=== PATIENT | male | born 1955 | race Caucasian/White ===

== ENCOUNTER 2016-07-07 09:23 | Inpatient (IN) | payer BC ==
[2016-07-02 20:26] LABS: HEMATOCRIT 41.1 % (40.0-51.0); HEMOGLOBIN 14.5 g/dL (13.6-17.8)
[2016-07-02 20:35] LABS: BUN (BLOOD UREA NITROGEN) 25 MG/DL (6-23); CALCIUM, SERUM 8.9 MG/DL (8.5-10.4); CHLORIDE, SERUM 106 MMOL/L (96-112); CO2 (CARBON DIOXIDE) 31 MMOL/L (24-34); CREATININE 1.16 MG/DL (0.70-1.30); GFR AFRICAN AMERICAN 78 ML/MIN (>=60); GFR NON AFRICAN AMERICAN 67 ML/MIN (>=60); GLUCOSE, SERUM 84 MG/DL (60-99); POTASSIUM, SERUM 4.2 MMOL/L (3.5-5.3); SODIUM, SERUM 143 MMOL/L (135-148)
--- NOTE | ~2016-07-07 | OP ---
Record Of Operation [facility] [address] [place] [address] NAME: FROYLAN GREEN : 51 STATUS : DIS IN PAT#: [id number] AGE: 61 ADM/REG DATE : 07/07/16 MR#: [id number] REPORT SERV DATE: 07/12/16 DICTATED BY: ALBANIA STANLEY II DATE: 07/12/16 REPORT STATUS : Draft TRANSCRIBED BY: MODL DATE: 07/12/16 DATE OF PROCEDURE: 07/07/2016 PREOPERATIVE DIAGNOSES: 1. Right lower extremity severe radiculopathy. 2. Degenerative scoliosis. 3. History of L4-5 and L5-S1 laminectomy. 4. L4-5 and L5-S1 facet instability. POSTOPERATIVE DIAGNOSES: 1. Right lower extremity severe radiculopathy. 2. Degenerative scoliosis. 3. History of L4-5 and L5-S1 laminectomy. 4. L4-5 and L5-S1 facet instability. PROCEDURE: 1. Posterior revision facetectomy and laminectomy for decompression of the L4, L5, and S1 nerve roots. 2. Posterolateral arthrodesis; L2-3, L3-4, L4-5, and L5-S1. 3. Posterior segmental instrumentation, L2-S1. 4. Use of local autograft, allograft substitute, and bone morphogenic protein. 5. Use of the microscope and stereotactic spinal imaging. SURGEON: Albania Stanley M.D. FLUIDS: 1900 mL LR. ESTIMATED BLOOD LOSS: 200 mL. DRAIN: One drain. No complications. ANTIBIOTICS: Preoperatively. IMPLANTS: Alphatec. COMPLICATIONS: None. PREOPERATIVE HISTORY: This is a very friendly 60-year-old gentleman who has unfortunately significant degeneration, which has led to a degenerative scoliosis with multilevel changes and coronal collapse at two levels. We discussed the pros and cons of continuing nonoperative care versus surgery. His back pain was not the primary pain but was the severe pain in the right buttock and the leg. We discussed the pros and cons of surgery and overall discussed the merits of continuing nonoperative care versus surgery. He was miserable with the right lower extremity pain. We discussed again the procedure as well as the recovery, and he wished to proceed. He had done well remotely when we had done a surgery previously. Record Of Operation [facility] [address] [place]. [address] NAME: FROYLAN GREEN : 51 STATUS : DIS IN PAT#: [id number] AGE: 61 ADM/REG DATE : 07/07/16 MR#: [id number] REPORT SERV DATE: 07/12/16 DICTATED BY: ALBANIA STANLEY II DATE: 07/12/16 REPORT STATUS : Draft TRANSCRIBED BY: HARMAN DATE: 07/12/16 DESCRIPTION OF PROCEDURE: After informed consent was obtained, the patient was brought to the operating room at his request and general anesthesia achieved. He was placed in the prone position and the back was prepped and draped in a sterile fashion. The midline incision was made and dissection was performed from L2-S1. Mr. Green is a very muscular gentleman in that the dissection did take a significant amount of time. The deep retractors were placed followed by placement of the spinous process stereotactic clamp. The intraoperative CT scan was completed and the stereotactic guidance used then throughout the case. At this point, the pedicle screws were placed into the left from L2-S1. On the right side, we then placed the L2 and L3 screws. We then later in the case, placed the S1 and L5 screws. At this point, the microscope was brought into place, and under microscopic visualization, the revision facetectomy and laminectomy were performed at L4-5 and L5-S1. This was an extremely difficult decompression, as there was significant scarring from the multiple decompressions he had had in the past. The dura was then ultimately identified and we were able to examine the nerve roots. Unfortunately, the L4, L5, and S1 nerve roots all exhibited severe compression. We had to perform a very aggressive and complete facetectomy including a resection of the pars. At this point, all three nerve roots were then well- decompressed. At this point, again we completed the pedicle screw instrumentation. A repeat CT scan was then performed and the screws confirmed to be well-placed. The rods were then well- assembled and final tightening performed followed by irrigation. Next, the decortication was performed of the transverse processes from L2-L5 followed by decortication of the sacral ala. Local autograft, allograft substitute, and bone morphogenic protein were then placed along the decorticated surfaces. A deep drain was placed followed by standard closure, and the patient was then extubated and transferred to PACU in stable condition. JJ/MODL Albania Stanley II, M.D. / [id number] CC: Go Navarrete II, D.O.
--- NOTE | ~2016-07-07 | DS ---
Discharge Summary [facility] [address] [place]. [address] NAME: FROYLAN GREEN : 51 STATUS : DIS IN PAT#: [id number] AGE: 61 ADM/REG DATE : 07/07/16 MR#: [id number] REPORT SERV DATE: 07/17/16 DICTATED BY: ALBANIA STANLEY II DATE: 07/16/16 REPORT STATUS : Draft TRANSCRIBED BY: HARMAN DATE: 07/16/16 Data Collection from hospitalization DISCHARGE DIAGNOSES: 1. Right lower extremity severe radiculopathy. 2. Degenerative scoliosis. 3. History of L4-5 and L5-S1 laminectomy. 4. L4-5 and L5-S1 facet instability. 5. Hypertension. CONSULTATIONS: None. PROCEDURES PERFORMED: 1. Posterior revision facetectomy and laminectomy for decompression of the L4-L5 and S1 nerve roots. 2. Posterolateral arthrodesis L2-3, L3-4, L4-5, and L5-S1. 3. Posterior segmental instrumentation L2-S1. 4. Use of local autograft, allograft substitute, and bone morphogenetic protein. Use of the microscope and stereotactic spinal imaging, 07/07/2016. PATHOLOGY: Tissue from lumbar spine benign, skeletal muscle and soft tissue and bone and cartilage, medullary bone with bone marrow particles with trilineage hematopoiesis. No metastatic malignancy or lymphoid or plasma cell neoplasm. MEDICATIONS: Cardizem CD 360 mg every morning, Prinivil 40 mg twice daily, MS Contin 30 mg twice daily, Prilosec 20 mg daily, indapamide 1.25 mg daily, Valium 5 mg every 8 hours as needed, Dilaudid 4 mg every 4 to 6 hours as needed. CONDITION AT DISCHARGE: Upon discharge he did appear to be doing well and his incision looked good. DISPOSITION: He had been discharged home to continue a regular diet with activity as discussed. He was to follow up with me in the office on 07/30/2016. HOSPITAL COURSE: This 61-year-old male had been complaining of lumbar spine related symptoms. His symptoms were located at the lower back with radiation into the ( ) right hip lower extremity with associated weakness, numbness, and tingling in the right foot. He reported that he was last seen in the office two months ago. When asked about the severity level of the symptoms, he reported a pain level of 8 on a scale of 0 to 10. The patient reported pain and symptoms had worsened since his last visit. He was ready and eager to go ahead with surgery. He admitted to the following factors that modified his symptoms, standing on concrete floor, prolonged position sitting, and bending worsened his pain and symptoms. Getting in the office feet resting for short periods decreased the severity of his pain and symptoms. He had been taking Ultram, Neurontin, ibuprofen, and [place] as needed to treat his pain and symptoms. He was now admitted for surgery and further treatment. Upon admission to the hospital, he had been taken to the operating room where he did undergo the above procedure. He tolerated this well and was transferred to the recovery room. On postop day #1, he did appear to be doing well. He was afebrile and his vital Discharge Summary [address] [address] NAME: FROYLAN GREEN : 51 STATUS : DIS IN PAT#: [id number] AGE: 61 ADM/REG DATE : 07/07/16 MR#: [id number] REPORT SERV DATE: 07/17/16 DICTATED BY: ALBANIA STANLEY II DATE: 07/16/16 REPORT STATUS : Draft TRANSCRIBED BY: MODL DATE: 07/16/16 signs were stable. He had been evaluated by Physical Therapy. On postop day #2, he did continue to do well and did have decreased leg pain. He was continued on his current medications. On postop day #3, he had remained in stable condition and was eager to go home. As he continued to do well he was then discharged with the above instructions. Information collected by: Sukhwinder CoyIMarielyT. I submit the above information as my discharge summary. CT/HARMAN Albania Stanley II, M.D. / [id number] CC: Go Navarrete II, D.O.
[~2016-07-07 09:23] MED LIST: BACDS PO; CARDCD360 PO; GOODY'S EX PO; HCTZ; INDAPAMIDE1.25 MG PO; LISINOPRIL40 MG PO; NORCO1 TAB PO; PCET PO; PERCOCET1 TA2 PO; PRILO PO; PRILOSEC OTC20 MG PO; ULTRAM50 PO
[2016-07-10] MEDS ORDERED: MSCONTIN PO (15:23)
[2016-07-10] MEDS ORDERED: V5 PO (15:24)
[2016-07-10] MEDS ORDERED: DIL4TAB PO (15:25)
== END 2016-07-10 16:15 | disposition home or self-care (01) | DRG 460 ==
LOC: SDC/OF 09:23 → 3SO 19:52
PROVIDERS: Orthopaedic Surgery
PROC: 0SG3071 Fusion of Lumbosacral Joint with Autologous Tissue Substitute, Posterior Approach, Posterior Column, Open Approach (ICD-10-PCS; 2016-07-07)
PROC: 4A11X4G Monitoring of Peripheral Nervous Electrical Activity, Intraoperative, External Approach (ICD-10-PCS; 2016-07-07)
PROC: 0SG1071 Fusion of 2 or more Lumbar Vertebral Joints with Autologous Tissue Substitute, Posterior Approach, Posterior Column, Open Approach (ICD-10-PCS; principal; 2016-07-07 12:00)
DX: M51.16 Intervertebral disc disorders with radiculopathy, lumbar region (principal); M41.86 Other forms of scoliosis, lumbar region; I10 Essential (primary) hypertension
CPT/HCPCS: 36415; 80048; 82962; 85014; 85018; 87641; 88304; 88311; 93005; 97116-GP; 97161-GP; A9270-GY; C1713; C1768; J0690; J1170; J1644; J2250; J2370; J2405; J2710; J3010